=== PATIENT | male | born 1995 | race Caucasian/White ===

== ENCOUNTER 2018-01-01 12:23 | Emergency (ER) | payer OTHER ==
[~2018-01-01] VITALS: Ht 162.6 cm; Wt 63.5 kg
[2018-01-01 12:27] VITALS: BP 154/91
--- NOTE | 2018-01-01 12:28 | NUR ---
Pt ambulated with assistance to bed 6.
--- NOTE | 2018-01-01 12:30 | NUR ---
22/M presents to ED with complaints of right foot pain today after stepping on a nail. No active bleeding noted. Pt c/o 02/04 pain to right foot. AOX4, clear speech. VSS. No distress noted.
--- NOTE | 2018-01-01 12:31 | NUR ---
Patient being evaluated by Dr. Garcia at bedside.
--- NOTE | 2018-01-01 12:31 | NUR ---
report given to BERT GAMINO
[2018-01-01] MEDS ORDERED: BACITRACIN OINT 500 UNITS/GM PKT TP ONE ×2 (12:37→12:40)
--- NOTE | 2018-01-01 14:28 | NUR ---
PATIENT WAS DISCHARGED WITH INTRUCTIONS TO CARE FOR HIS FOOT. HE RECIEVED A TDAP AT BEDSIDE BEFORE DISCHARGE. PATIENT HAD A PAIN LEVEL OF 3. PATIENT UNDERSTYOOD THE IN HOME CARE INSTRUCTIONS.
[2018-01-01 14:29] VITALS: BP 143/68
== END 2018-01-01 14:28 | disposition home or self-care (01) ==
LOC: MED 12:23
DX: S91.331A Puncture wound without foreign body, right foot, initial encounter (principal); Z91.013 Allergy to seafood; W22.8XXA Striking against or struck by other objects, initial encounter; Y93.89 Activity, other specified; Y92.89 Other specified places as the place of occurrence of the external cause; Y99.8 Other external cause status
CPT/HCPCS: 90471; 90715; 99283